=== PATIENT | female | born 1980 | race Caucasian/White ===

== ENCOUNTER 2016-09-07 20:35 | Emergency (ER) | payer OTHER ==
[~2016-09-07] VITALS: Ht 165.1 cm; Wt 120.0 kg
[~2016-09-07 20:35] MED LIST: ALBU6.7H INH; CETI5TAB2 PO; CIPR500T2 PO; GUAI100S6 PO; PRED20 PO; PROM25SU8 PO; Z.0.BCPILL PO; ZITH250T PO
[2016-09-07 20:56] VITALS: BP 146/99; PULSE 113; RESP 14; TEMP 98.3; O2SAT 98
--- NOTE | 2016-09-07 21:39 | PD ---
HPI Chief Complaint: Musculoskeletal Complaint Time Seen by Provider: 21:15 Travel History International Travel<30 days: No Contact w/Intl Traveler<30days: No Traveled to known affect area: No History of Present Illness HPI 35-year-old female presents to the emergency department for right ankle pain. She reports she was running in the yard and felt a pop in the posterior aspect of her ankle causing immediate pain. She describes the pain as aching, constant , severity 4-10,Relieved with rest. Patient is able to ambulate but has pain with dorsiflexion. She denies any numbness or tingling in the extremity. She reports normal motor and sensation of the extremity. [facility] Past Medical History Medical History: Denies Significant Hx Diminished Hearing: No Tetanus Vaccination: Unknown Influenza Vaccination: Yes ?: Not Social History Alcohol Use: Yes (OCCASIONAL) Tobacco Use: No Substance Use: No Allergies-Medications (Allergen,Severity, Reaction): Coded Allergies: No Known Allergies (Verified , 12/06/12) Reported Meds & Prescriptions Reported Meds & Active Scripts Active Deltasone (Prednisone) 20 Mg Tab 20 Mg PO BID Proventil Hfa (Albuterol Sulfate) 6.7 Gm Aero 2 Puff INH Q4 PRN * SHAKE WELL BEFORE USE * Zithromax Z-Umberto (Azithromycin) 250 Mg Tab 250 Mg PO DAILY 6 Days Robitussin Ac (Guaifenesin/Codeine Phosphate) Syrp 5-10 Ml PO Q6HPRN Phenergan (Promethazine HCl) 25 Mg Tab 25 Mg PO Q6HPRN FOR NAUSEA/VOMITING Cipro (Ciprofloxacin) 500 Mg Tab 500 Mg PO BID Reported Zyrtec (Cetirizine HCl) 5 Mg Tab 5 Mg PO DAILY Control Pills (Miscellaneous Medication) Tab 1 Tab PO DAILY Review of Systems Except as stated in HPI: all other systems reviewed are Neg Physical Exam Narrative GENERAL: Well-nourished, well-developed patient. SKIN: Focused skin assessment warm/dry. No ecchymosis. HEAD: Normocephalic. EYES: No scleral icterus. No injection or drainage. NECK: Supple, trachea midline. No JVD or lymphadenopathy. CARDIOVASCULAR: Regular rate and rhythm without murmurs, gallops, or rubs. RESPIRATORY: Breath sounds equal bilaterally. No accessory muscle use. GASTROINTESTINAL: Abdomen soft, non-tender, nondistended. MUSCULOSKELETAL: No cyanosis. No deformity. Mild swelling to the right ankle. Tenderness to the posterior aspect over the Achilles tendon. Positive Rosario's test. BACK: Nontender without obvious deformity. No CVA tenderness. Data Data Last Documented VS Vital Signs Date Time Temp Pulse Resp B/P Pulse Ox O2 Delivery O2 Flow Rate FiO2 09/07/16 20:56 98.3 113 14 146/99 98 Orders Ankle, Complete ([id number]) (09/07/16 ) Splint Or Brace Apply/Monitor (09/07/16 21:55) [facility] Medical Decision Making Medical Screen Exam Complete: Yes Emergency Medical Condition: Yes Differential Diagnosis Achilles tendon rupture, ankle fracture, ankle sprain Narrative Course 35-year-old female presents to the emergency department for posterior ankle pain. She reports that she was running in her yard and felt a pop and sharp pain in the posterior aspect of her ankle. Patient has pain and limited dorsiflexion and plantarflexion. Extremities neurovascularly intact. Tenderness on exam to the posterior ankle over the Achilles tendon. Patient has a positive Rosario's test. X-ray negative for fracture. Compartments of the calf are soft. Achilles tendon rupture/injury suspected. Patient placed in posterior short leg splint in slight plantarflexion. Crutches for nonweightbearing. Patient is going to call for orthopedic follow-up tomorrow. Patient instructed to ice and elevate the extremity. Patient agrees to this plan. 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 Additional Instructions: Call for orthopedic follow-up tomorrow. Keep the area elevated. Return to the emergency department immediately if he developed severe increasing pain, numbness and tingling in her toes, change in color or temperature of the toes. Scripts Ibuprofen 800 Mg [id number] Mg PO Q8H PRN (Pain/Inflammation) #20 TAB Ref 0 Prov:Angélica Kidd 09/07/16 Tramadol 50 Mg Tab50 Mg PO Q6H PRN (PAIN) #15 TAB Ref 0 Prov:Angélica Kidd 09/07/16 Disposition: 01 DISCHARGE HOME Condition: Stable Angélica KiddP September 07, 2016 21:39
--- NOTE | 2016-09-07 21:54 | RADHPO ---
EXAM DATE/TIME: 09/07/2016 21:31 [facility] COMPARISON: No previous studies available for comparison. INDICATIONS : Complains of right ankle pain. MEDICAL HISTORY : None. SURGICAL HISTORY : None. ENCOUNTER: Initial ACUITY: 1 day PAIN SCORE: 6/10 LOCATION: Right ankle FINDINGS: There is no acute fracture or dislocation of the right ankle. The ankle mortise is intact. There is a prominent Achilles calcaneal spur. CONCLUSION: 1. No acute fracture or dislocation. 2. Prominent Achilles calcaneal spur. Serafin Perdue MD on September 07, 2016 at 21:38 Board Certified Radiologist. This report was verified electronically.
[2016-09-07] MEDS ORDERED: IBUP800T23 PO (22:19)
[2016-09-07] MEDS ORDERED: TRAM50TA PO (22:19)
== END 2016-09-07 22:43 | disposition home or self-care (01) ==
LOC: PHEFT 20:35
DX: S86.001A Unspecified injury of right Achilles tendon, initial encounter (principal); X50.9XXA Other and unspecified overexertion or strenuous movements or postures, initial encounter; Z79.899 Other long term (current) drug therapy
CPT/HCPCS: 29515; 73610; E0113

== ENCOUNTER 2016-09-09 15:00 | Observation (INO) | payer OTHER ==
[~2016-09-09] VITALS: Ht 165.1 cm; Wt 85.0 kg
[~2016-09-09 15:00] MED LIST changes: +IBUP800T23 PO; +TRAM50TA PO
[2016-09-09 15:01] VITALS: BP 152/102; PULSE 105; TEMP 98.1; O2SAT 97
--- NOTE | 2016-09-09 15:12 | PD ---
Physical Exam Time Seen by Provider: 15:08 Narrative 35yo F sent by boring mill set up operator vertical for MRI R ankle and admission for surgery tomorrow secondary to possible ruptured Achilles tendon. Patient does not know name of boring mill set up operator vertical. Says the MD was going o call ahead. Patient seen in triage. VS reviewed. Awaiting bed placement. Data Data Last Documented VS Vital Signs Date Time Temp Pulse Resp B/P Pulse Ox O2 Delivery O2 Flow Rate FiO2 09/09/16 15:01 98.1 105 152/102 97 MDM Supervised Visit with CHAGO: Margie Rodas September 09, 2016 15:11
[2016-09-09] MEDS ORDERED: ALLE60TA PO ×2 (15:29)
[2016-09-09] MEDS ORDERED: SYMB160A INH ×2 (15:29)
--- NOTE | 2016-09-09 15:45 | PD ---
HPI Chief Complaint: Injury Time Seen by Provider: 15:20 Travel History International Travel<30 days: No Contact w/Intl Traveler<30days: No Traveled to known affect area: No History of Present Illness HPI This is a patient who was sent here by her machine or machinery mechanic for admission for operative repair of Achilles tendon rupture. The patient sustained an Achilles tendon rupture 2 days ago when she was running. She was placed in a posterior short leg splint, followed up yesterday with machine or machinery mechanic Dr. Saldana. She was sent here today by Dr. Saldana to be admitted to medicine, consultation to herself, likely operative repair tomorrow. I discussed with Dr. Saldana, she would like an MRI of the right ankle to be performed today to help with preoperative planning. The patient has been nonweightbearing, right leg has been in a posterior short leg splint and she has no complaints at this time. PFSH Past Medical History Asthma: Yes Diminished Hearing: No Respiratory: Yes (ASTHMA & ALLERGIES) ?: Not LMP: 08/19/16 Social History Alcohol Use: Yes (OCCASIONAL) Tobacco Use: No Substance Use: No Allergies-Medications (Allergen,Severity, Reaction): Coded Allergies: No Known Allergies (Verified , 09/09/16) Reported Meds & Prescriptions Reported Meds & Active Scripts Active Reported Payton Allergy (Fexofenadine HCl) 60 Mg Tab 60 Mg PO BID Review of Systems Except as stated in HPI: all other systems reviewed are Neg Physical Exam Narrative GENERAL: Well-nourished female in no acute distress SKIN: Warm and dry. HEAD: Atraumatic. Normocephalic. EYES: Pupils equal and round. No scleral icterus. No injection or drainage. ENT: No nasal bleeding or discharge. Mucous membranes pink and moist. NECK: Trachea midline. No JVD. CARDIOVASCULAR: Regular rate and rhythm. No murmur appreciated. RESPIRATORY: No accessory muscle use. Clear to auscultation. Breath sounds equal bilaterally. GASTROINTESTINAL: Abdomen soft, non-tender, nondistended. MUSCULOSKELETAL: No obvious deformities. Right leg in a posterior short-leg splint. She is able to wiggle her toes. NEUROLOGICAL: Awake and alert. No obvious cranial nerve deficits. Motor grossly within normal limits. Normal speech. Data Data Last Documented VS Vital Signs Date Time Temp Pulse Resp B/P Pulse Ox O2 Delivery O2 Flow Rate FiO2 5/31/17 15:24 96 Room Air 09/09/16 15:01 98.1 105 152/102 Orders Complete Blood Count With Diff (09/09/16 15:41) Basic Metabolic Panel (Bmp) (09/09/16 15:41) Act Partial Throm Time (Ptt) (09/09/16 15:41) Prothrombin Time / Inr (Pt) (09/09/16 15:41) Mri Joint Ankle W/O Contrast (09/09/16 ) Iv Access Insert/Monitor (09/09/16 15:41) Consult Podiatry (09/09/16 ) Admit Order (Ed Use Only) (09/09/16 16:09) Admit To Inpatient (09/09/16 ) Inpatient Certification (09/09/16 ) Diet Regular Basic (09/09/16 Dinner) Activity Bed Rest (09/09/16 16:09) Vital Signs (Adult) [id number].[id number] (09/09/16 16:09) MDM Medical Decision Making Medical Screen Exam Complete: Yes Emergency Medical Condition: Yes Medical Record Reviewed: Yes Differential Diagnosis Achilles tendon rupture, ankle fracture, compartment syndrome Narrative Course An MRI of the right ankle has been ordered. The patient will be admitted to medicine with consultation to Dr. Saldana. Diagnosis Primary Impression: Achilles tendon rupture Qualified Code: S86.011D - Achilles tendon rupture, right, subsequent encounter Admitting Information Admitting Physician Requests: Observation Hakeem Kumar September 09, 2016 15:45
[2016-09-09 16:30] LABS: AUTOMATED NEUTROPHIL # 3.9 TH/MM3 (1.8-7.7); BASOPHIL # 0.1 TH/MM3 (0-0.2); BASOPHIL % 0.9 % (0.0-2.0); EOSINOPHIL # 0.4 TH/MM3 (0-0.4); EOSINOPHIL % 5.5 % (0.0-4.0); HEMATOCRIT 41.4 % (35.0-46.0); HEMO FLAGS DIFF FINAL; LYMPHOCYTE # 1.8 TH/MM3 (1.0-4.8); MEAN CELL VOLUME 82.6 FL (80.0-100.0); MEAN CORPUSCULAR HEMOGLOBIN 26.7 PG (27.0-34.0); MEAN CORPUSCULAR HGB CONC 32.4 % (32.0-36.0); NEUT % 59.6 % (16.0-70.0); PLATELET COUNT 263 TH/MM3 (150-450); RED BLOOD COUNT 5.01 MIL/MM3 (4.00-5.30); RED CELL DISTRIBUTION WIDTH 13.8 % (11.6-17.2); WHITE BLOOD COUNT 6.5 TH/MM3 (4.0-11.0)
[2016-09-09 16:40] LABS: PROTHROMBIN TIME - PATIENT 10.7 SEC (9.8-11.6)
--- NOTE | 2016-09-09 17:02 | HHI.HP ---
[facility] No Primary Care Physician Admission Diagnosis R achilles tendon rupture Diagnoses: Chief Complaint: Right foot pain Travel History International Travel<30 Days: No Contact w/Intl Traveler <30 Da: No Traveled to Known Affected Are: No History of Present Illness Patient is a 35-year-old female with history of hyperreactive airway disease who about 2 days prior to admission was laying around her home chasing each other when patient felt something popped on his foot and next day noted some swelling of the foot and unable to fully evaluate chronic with increasing pain. Came to the urgent care clinic where on evaluation was suspected to have an Achilles tendon rupture. Posterior leg splint was placed. Patient was referred to assisted living nursing director and was sent over here for further evaluation and management.and possible operative repair. Review of Systems Constitutional: DENIES: Diaphoretic episodes, Fatigue, Fever, Weight gain, Weight loss, Chills, Dizziness, Change in appetite, Night Sweats Endocrine: DENIES: Abnorml menstrual pattern, Heat/cold intolerance, Polydipsia , Polyuria, Polyphagia Eyes: DENIES: Blurred vision, Diplopia, Eye inflammation, Eye pain, Vision loss , Photosensitivity, Double Vision Ears, nose, mouth, throat: DENIES: Tinnitus, Hearing loss, Vertigo, Nasal discharge, Oral lesions, Throat pain, Hoarseness, Ear Pain, Running Nose, Epistaxis, Sinus Pain, Toothache, Odynophagia Respiratory: DENIES: Apneas, Cough, Snoring, Wheezing, Hemoptysis, Sputum production, Shortness of breath Cardiovascular: DENIES: Chest pain, Palpitations, Syncope, Dyspnea on Exertion , PND, Lower Extremity Edema, Orthopnea, Claudication Gastrointestinal: DENIES: Abdominal pain, Black stools, Bloody stools, Constipation, Diarrhea, Nausea, Vomiting, Difficulty Swallowing, Anorexia Genitourinary: DENIES: Abnormal vaginal bleeding, Dysmenorrhea, Dyspareunia, Sexual dysfunction, Urinary frequency, Urinary incontinence, Urgency, Hematuria , Dysuria, Nocturia, Vaginal discharge Musculoskeletal: DENIES: Joint pain, Muscle aches, Stiffness, Joint Swelling, Back pain, Neck pain Integumentary: DENIES: Abnormal pigmentation, Pruritus, Rash, Nail changes, Breast masses, Breast skin changes, Nipple discharge Hematologic/lymphatic: DENIES: Bruising, Lymphadenopathy Immunologic/allergic: DENIES: Eczema, Urticaria Neurologic: DENIES: Abnormal gait, Headache, Localized weakness, Paresthesias, Seizures, Speech Problems, Tremor, Poor Balance Psychiatric: DENIES: Anxiety, Confusion, Mood changes, Depression, Hallucinations, Agitation, Suicidal Ideation, Homicidal Ideation, Delusions Past Family Social History Past Medical History Hyperreactive airway disease Allergic rhinitis Past Surgical History section x 1- 2 para 2 Reported Medications None Allergies: Coded Allergies: No Known Allergies (Verified , 09/09/16) Family History Positive family history of hypertension, diabetes, COPD Social History Nonsmoker very rare Physical Exam Vital Signs Vital Signs Date Time Temp Pulse Resp B/P Pulse Ox O2 Delivery O2 Flow Rate FiO2 09/09/16 15:24 96 Room Air 09/09/16 15:01 98.1 105 152/102 97 Physical Exam GENERAL:in no apparent distress. SKIN: No rashes, ecchymoses or lesions. Cool and dry. HEAD: Atraumatic. Normocephalic.\ EYES: Pupils equal round and reactive. Extraocular motions intact. No scleral icterus. No injection or drainage. ENT: Nose without bleeding, Throat without erythema Airway patent. NECK: Trachea midline. No JVD or lymphadenopathy. Supple, nontender, no meningeal signs. CARDIOVASCULAR: Regular rate and rhythm without murmurs, gallops, or rubs. RESPIRATORY: Clear to auscultation. Breath sounds equal bilaterally. No wheezes , rales, or rhonchi. GASTROINTESTINAL: Abdomen soft, non-tender, nondistended. No hepato-splenomegaly , or palpable masses. No guarding. MUSCULOSKELETAL: Extremities without clubbing, cyanosis, or edema. No joint tenderness, effusion, or edema noted. No calf tenderness. Negative Homans sign bilaterally.. Foot with a plastic dressing in place able to wiggle toes freely NEUROLOGICAL: Awake and alert. Cranial nerves II through XII intact. Motor and sensory grossly within normal limits. Five out of 5 muscle strength in all muscle groups. Normal speech. Gait testing deferred Laboratory Laboratory Tests Test 09/09/16 16:00 White Blood Count 6.5 Red Blood Count 5.01 Hemoglobin 13.4 Hematocrit 41.4 Mean Corpuscular Volume 82.6 Mean Corpuscular Hemoglobin 26.7 Mean Corpuscular Hemoglobin 32.4 Concent Red Cell Distribution Width 13.8 Platelet Count 263 Mean Platelet Volume 8.1 Neutrophils (%) (Auto) 59.6 Lymphocytes (%) (Auto) 27.0 Monocytes (%) (Auto) 7.0 Eosinophils (%) (Auto) 5.5 Basophils (%) (Auto) 0.9 Neutrophils # (Auto) 3.9 Lymphocytes # (Auto) 1.8 Monocytes # (Auto) 0.5 Eosinophils # (Auto) 0.4 Basophils # (Auto) 0.1 CBC Comment DIFF FINAL Differential Comment Prothrombin Time 10.7 Prothromb Time International 1.0 Ratio Activated Partial 28.0 Thromboplast Time Result Diagram: 09/09/16 1600 Assessment and Plan Assessment and Plan 35-year-old female Status post fall 2 days ago presenting with right foot pain possible Achilles tendon rupture. MRI ordered. Podiatry consulted. Plan for surgery in a.m. When necessary pain meds. History of hyperreactive airway disease in remission.. Continue on Symbicort 1 puff daily. Albuterol MDI when necessary for shortness of breath. Discussed Condition With Patient Physician Certification 2 Midnight Certification Type: Admission for Inpatient Services Order for Inpatient Services The services are ordered in accordance with Medicare regulations or non- Medicare payer requirements, as applicable. In the case of services not specified as inpatient-only, they are appropriately provided as inpatient services in accordance with the 2-midnight benchmark. Estimated LOS (days): 3 days is the estimated time the patient will need to remain in the hospital, assuming treatment plan goals are met and no additional complications. Post-Hospital Plan: Not yet determined Angus Erazo MD September 09, 2016 17:02
[2016-09-09 17:09] LABS: BICARBONATE 28.3 MEQ/L (21.0-32.0); POTASSIUM 3.7 MEQ/L (3.5-5.1)
--- NOTE | 2016-09-09 18:20 | PD.CONS ---
History of Present Illness Service Podiatry Consult Requested By ED Reason for Consult R achilles tendon rupture Primary Care Physician No Primary Care Physician Diagnoses: History of Present Illness patient was chasing kids who were playing with water guns and felt a pop in her R achilles tendon and was subsequently unable to walk on . She was seen at [facility], splinted NWB and followed up in clinic yesterday. She was sent in today for surgical repair of the ruptured tendon. Past Family Social History Allergies: Coded Allergies: No Known Allergies (Verified , 09/09/16) Physical Exam Vital Signs Vital Signs Date Time Temp Pulse Resp B/P Pulse Ox O2 Delivery O2 Flow Rate FiO2 09/09/16 17:56 100 09/09/16 15:24 96 Room Air 09/09/16 15:01 98.1 105 152/102 97 Physical Exam GENERAL: This is a well-nourished, well-developed patient, in no apparent distress. NVI RLE. Pain to palpation to midsubstance achilles tendon R and insertion. Positive mcdaniels test. Mild edema. Laboratory Laboratory Tests Test 09/09/16 16:00 White Blood Count 6.5 Red Blood Count 5.01 Hemoglobin 13.4 Hematocrit 41.4 Mean Corpuscular Volume 82.6 Mean Corpuscular Hemoglobin 26.7 Mean Corpuscular Hemoglobin 32.4 Concent Red Cell Distribution Width 13.8 Platelet Count 263 Mean Platelet Volume 8.1 Neutrophils (%) (Auto) 59.6 Lymphocytes (%) (Auto) 27.0 Monocytes (%) (Auto) 7.0 Eosinophils (%) (Auto) 5.5 Basophils (%) (Auto) 0.9 Neutrophils # (Auto) 3.9 Lymphocytes # (Auto) 1.8 Monocytes # (Auto) 0.5 Eosinophils # (Auto) 0.4 Basophils # (Auto) 0.1 CBC Comment DIFF FINAL Differential Comment Prothrombin Time 10.7 Prothromb Time International 1.0 Ratio Activated Partial 28.0 Thromboplast Time Sodium Level 138 Potassium Level 3.7 Chloride Level 104 Carbon Dioxide Level 28.3 Anion Gap 6 Blood Urea Nitrogen 12 Creatinine 0.87 Estimat Glomerular Filtration 74 Rate Random Glucose 88 Calcium Level 9.2 Result Diagram: 09/09/16 1600 09/09/16 1600 Imaging MRI report pending Preliminary read confirms diagnosis Assessment and Plan Assessment and Plan Achilles tendon rupture, R Plan to OR tomorrow PM for repair R achilles tendon NPO after breakfast. NWB RLE in splint. Will need DVT prophylaxis upon d/c Elisabet Saldana DPM September 09, 2016 18:20
--- NOTE | 2016-09-09 18:56 | RADRPT ---
EXAM DATE/TIME: 09/09/2016 17:08 [facility] COMPARISON: No previous studies available for comparison. INDICATIONS : Achilles tendon tear. MEDICAL HISTORY : Asthma. SURGICAL HISTORY : section. ENCOUNTER: Initial ACUITY: 1 day PAIN SCORE: 7/10 LOCATION: Right Ankle. TECHNIQUE: Multiplanar, multisequence MRI examination was performed without contrast. FINDINGS: Rupture of the Achilles tendon 3 cm from the insertion. Marked heterogeneity and thinning of the dist al tendon fragment. Moderate thickening and heterogeneity of the proximal tendon fragment. 1 cm retra ction. All of the other visualized tendons are intact. Medial and lateral ligaments complexes are int act. Mild reactive bony change of the posterior process of the calcaneus. Bone marrow signal otherwis e within normal limits. Sinus Tarsi within normal limits. Plantar neurosis intact. CONCLUSION: Rupture of the Achilles tendon 3 cm proximal to the insertion with 1 cm retraction. Leandro Trejo MD on September 09, 2016 at 18:51 Board Certified Radiologist. This report was verified electronically.
[2016-09-09 20:00] VITALS: BP 121/76; PULSE 102; RESP 18; TEMP 97.4; O2SAT 98
[2016-09-09] MEDS: oxyCODONE/ACETAMINOPHEN 5 MG/325 MG TAB PO PRN (20:46)
[2016-09-10 00:10] VITALS: BP 118/63; PULSE 100; RESP 18; TEMP 97.8; O2SAT 98
[2016-09-10 08:00] VITALS: BP 146/69; PULSE 103; RESP 18; TEMP 97.3; O2SAT 98
--- NOTE | 2016-09-10 10:12 | HHI.PR ---
Subjective Remarks no complains of pain looking forward to surgery thi pm Objective Vitals Vital Signs Date Time Temp Pulse Resp B/P Pulse Ox O2 Delivery O2 Flow Rate FiO2 09/10/16 08:00 97.3 103 18 146/69 98 09/10/16 00:10 97.8 100 18 118/63 98 09/09/16 20:00 97.4 102 18 121/76 98 09/09/16 17:56 100 09/09/16 15:24 96 Room Air 09/09/16 15:01 98.1 105 152/102 97 I/O 09/09/16 09/09/16 09/09/16 09/10/16 09/10/16 09/10/16 07:00 15:00 23:00 07:00 15:00 23:00 Intake Total 480 ml 280 ml Balance 480 ml 280 ml Intake Oral 480 ml 280 ml # Voids 2 2 Result Diagram: 09/09/16 1600 09/09/16 1600 Imaging Last Impressions Ankle MRI 09/09/16 0000 Signed Impressions: Service Date/Time: Friday, September 09, 2016 17:08 - CONCLUSION: Rupture of the Achilles tendon 3 cm proximal to the insertion with 1 cm retraction. Leandro Trejo MD Objective Remarks awake and alert, no distress lungs clear, no wheezes, no rales regular rhythm abdomen soft, nontender extremities- foot elastic dressing in place, no calf tenderness A/P Assessment and Plan 35-year-old female Status post fall 2 days ago - right Achilles tendon rupture. Podiatry ff. For surgery today History of hyperreactive airway disease in remission.. Continue on Symbicort 1 puff daily. Albuterol MDI when necessary for shortness of breath. DVT prophylaxis post op per Podiatry Angus Erazo MD Sep 10, 2016 10:12
[2016-09-10] MEDS ORDERED: ONDANSETRON HCL 4 MG/2 ML VIAL IV PUSH ONE (11:08)
[2016-09-10] MEDS ORDERED: PROPOFOL 200 MG/20 ML AMP IV ONE (11:08)
[2016-09-10 12:00] VITALS: BP 135/74; PULSE 89; RESP 18; TEMP 97.3; O2SAT 96
[2016-09-10 16:00] VITALS: BP 132/73; PULSE 100; RESP 19; TEMP 97.4; O2SAT 97
[2016-09-10] MEDS ORDERED: ceFAZolin 2 GM PREMIX 50 ML ONE (17:08)
[2016-09-10] MEDS ORDERED: ceFAZolin INJ 1,000 MG VIAL ONE (17:08)
[2016-09-10] MEDS ORDERED: FAMOTIDINE 20 MG/2 ML VIAL ONE (17:22)
[2016-09-10] MEDS ORDERED: MIDAZOLAM HCL 2 MG/2 ML VIAL ONE (17:22)
[2016-09-10] MEDS ORDERED: fentaNYL CITRATE 250 MCG/5 ML AMP ONE ×2 (17:22→19:04)
[2016-09-10] MEDS ORDERED: DEXAMETHASONE SOD PHOS 4 MG/ML VIAL ONE (17:22)
[2016-09-10 20:18] VITALS: BP 125/55; PULSE 69; RESP 17; TEMP 97.5; O2SAT 97
--- NOTE | 2016-09-10 20:40 | HHI.PR ---
Immediate Post Op Note Procedure Date: Sep 10, 2016 Pre Op Diagnosis: Right achilles tendon rupture Post Op Diagnosis: Same Surgeon: Elisabet Saldana DPM [employer](s): Staff Procedure: 1. gastrocnemius recession R 2. achilles tendon repair with graft 3. flexor hallucis longus tendon transfer Findings: 2g ancef preop. Achilles tendon ruptured 1cm proximal to insertion with frayed ends and proximal aspect retracted 1cm proximally. Gastrocnemius recession performed to achieve adequate length for repair. Flexor hallucis longus tendon identified and released at posterior ankle and transferred to dorsal posterior calcaneus with 4.75 swivelock. Graft jacket utilized to augment repair of achilles with arthrex speedbridge system. Irrigation and closure of skin with 2-0 vicryl and 2 -0 nylon, followed by posterior splint in plantarflexion. NWB RLE. PT to gait train. DVT prophylaxis to start tomorrow. Additional Information: prone position Complications: none Specimen(s) removed: n/a Estimated blood loss: minimal Anesthesia: General Drains: None IVF Tourniquet time (min at mmHg) 126 min @ 250 mmHg Patient to: PACU Patient Condition: Good Date/Time of Procedure: SEE SURGICAL CARE RECORD Elisabet Saldana DPM Sep 10, 2016 20:40
[2016-09-10] MEDS ORDERED: *morphine SULFATE 8 MG/ML PERIprocedure ONLY ONE ×2 (20:53→21:20)
[2016-09-10] MEDS ORDERED: *MEPERIDINE 25 MG INJ VIAL PERIprocedural Use ONLY ONE (20:54)
--- NOTE | 2016-09-10 21:02 | RADRPT ---
EXAM DATE/TIME: 09/10/2016 20:23 [facility] COMPARISON: No previous studies available for comparison. INDICATIONS : Right achilles tendon repair. MEDICAL HISTORY : Asthma SURGICAL HISTORY : section. ENCOUNTER: Initial ACUITY: 1 day PAIN SCORE: Non-responsive. LOCATION: Right ankle FINDINGS: A single view of the right ankle was performed. There is a cylindrical lucency involving the calcaneu s consistent with surgical repair.. CONCLUSION: Limited image as detailed above. Moises Pan Jr., MD on September 10, 2016 at 20:59 Board Certified Radiologist. This report was verified electronically.
[2016-09-10] MEDS ORDERED: DO NOT ADM ANY ANTICOAGULANT DRUGS PRN (21:45)
[2016-09-10] MEDS: oxyCODONE/ACETAMINOPHEN 5 MG/325 MG TAB PO PRN (21:48)
[2016-09-10 22:00] VITALS: BP 167/91; PULSE 109; RESP 18; TEMP 98.9; O2SAT 96
[2016-09-10] MEDS: HYDROmorphone HCL PF 1 MG/ML VIAL IV PUSH PRN (22:20)
[2016-09-11 00:03] VITALS: BP 134/81; PULSE 102; RESP 18; TEMP 97; O2SAT 95
[2016-09-11] MEDS: oxyCODONE/ACETAMINOPHEN 5 MG/325 MG TAB PO PRN ×4 (01:27→20:47)
[2016-09-11] MEDS: HYDROmorphone HCL PF 1 MG/ML VIAL IV PUSH PRN (02:16)
[2016-09-11 04:05] VITALS: BP 114/60; PULSE 104; RESP 18; TEMP 97.4; O2SAT 96
[2016-09-11 08:00] VITALS: BP 114/86; PULSE 91; RESP 18; TEMP 97.1; O2SAT 96
--- NOTE | 2016-09-11 08:09 | HHI.PR ---
Subjective Remarks no complains of pain right now feels frustrated- wanting to be discharge Objective Vitals Vital Signs Date Time Temp Pulse Resp B/P Pulse Ox O2 Delivery O2 Flow Rate FiO2 09/11/16 04:05 97.4 104 18 114/60 96 09/11/16 00:03 97.0 102 18 134/81 95 09/10/16 22:00 98.9 109 18 167/91 96 09/10/16 21:15 100 16 143/71 98 Nasal Cannula 2 09/10/16 21:00 97 16 149/79 97 Nasal Cannula 2 09/10/16 20:45 97 16 151/87 99 Nasal Cannula 2 09/10/16 20:40 97.2 99 16 159/94 100 Nasal Cannula 2 09/10/16 16:00 97.4 100 19 132/73 97 09/10/16 12:00 97.3 89 18 135/74 96 I/O 09/10/16 09/10/16 09/10/16 09/11/16 09/11/16 09/11/16 07:00 15:00 23:00 07:00 15:00 23:00 Intake Total 280 ml 0 ml 1300 ml 240 ml Output Total 100 ml Balance 280 ml 0 ml 1200 ml 240 ml Intake Oral 280 ml 0 ml 0 ml 240 ml IV Total 100 ml Other 1200 ml Output Urine Total 0 ml Estimated Blood Loss 100 ml Other 0 ml # Voids 2 2 2 # Bowel Movements 1 Result Diagram: 09/09/16 1600 09/09/16 1600 Imaging Last Impressions Ankle X-Ray 09/10/16 0000 Signed Impressions: Service Date/Time: September 20:23 - CONCLUSION: Limited image as detailed above. Moises Pan Jr., MD Ankle MRI 09/09/16 0000 Signed Impressions: Service Date/Time: Friday, September 09, 2016 17:08 - CONCLUSION: Rupture of the Achilles tendon 3 cm proximal to the insertion with 1 cm retraction. Leandro Trejo MD Objective Remarks awake and alert, no distress lungs clear, no wheezes, no rales regular rhythm abdomen soft, nontender right foot - foot elastic dressing in place Procedures 09/10- achilles tendon repair with graft, gastrocnemius recession A/P Assessment and Plan 35-year-old female Status post fall R Achilles tendon rupture S/P Achilles tendon repair 09/10 Podiatry ff. will defer to Podiatry service to initiate and order for PT with specific orders for weightbearing status History of hyperreactive airway disease in remission.. Continue on Symbicort 1 puff daily. Albuterol MDI when necessary for shortness of breath. DVT prophylaxis- start on Lovenox if cleared with Podiatry- Discharge Planning will get CM involved for early DC plans Angus Erazo MD Sep 11, 2016 08:09
[2016-09-11] MEDS ORDERED: HYDROmorphone HCL PF 1 MG/ML VIAL IV PUSH PRN (09:00)
[2016-09-11] MEDS: LORATADINE 10 MG TAB PO SCH (09:47)
[2016-09-11] MEDS: ENOXAPARIN SODIUM 40 MG/0.4 ML SYRINGE SQ SCH (09:48)
[2016-09-11 12:00] VITALS: BP 119/74; PULSE 105; RESP 18; TEMP 96.6; O2SAT 99
[2016-09-11 16:00] VITALS: BP 116/59; PULSE 109; RESP 18; TEMP 98.6; O2SAT 95
[2016-09-11 20:48] VITALS: BP 126/65; PULSE 100; RESP 20; TEMP 99.1; O2SAT 97
--- NOTE | 2016-09-11 22:34 | PD.POD ---
Subjective Podiatric Problems POD # 1 s/p achilles tendon repair R, FHL tendon transfer R, gastrocnemius recession R, DOS 09/10/16 Robbieirogaetano Past Med/Surg/Social History Social History Smoking Status: Never Smoker Objective Vital Signs Vital Signs Date Time Temp Pulse Resp B/P Pulse Ox O2 Delivery O2 Flow Rate FiO2 09/11/16 20:48 99.1 100 20 126/65 97 09/11/16 16:00 98.6 109 18 116/59 95 09/11/16 12:00 96.6 105 18 119/74 99 09/11/16 08:00 97.1 91 18 114/86 96 09/11/16 04:05 97.4 104 18 114/60 96 09/11/16 00:03 97.0 102 18 134/81 95 Coded Allergies: No Known Allergies (Verified , 09/09/16) Physical Exam Remarks R foot splint intact. Able to flex/extend digits. NVI RLE. Bandage clean without strikethrough. Denies calf pain, shortness of breath Assessment & Plan A/P POD # 1 s/p achilles tendon repair R, FHL tendon transfer R, gastrocnemius recession R, DOS 09/10/16 Shana Continue NWB RLE Needs pain control/lovenox upon DC Ok to d/c tomorrow morning if tolerating PO pain medication Has appt in clinic next for follow up Keep clean, dry, intact Eliasbet Saldana DPM Sep 11, 2016 22:34
[2016-09-12] VITALS: BP 101/51; PULSE 100; RESP 20; TEMP 99.4; O2SAT 98
[2016-09-12 08:00] VITALS: BP 142/64; PULSE 115; RESP 18; TEMP 100.1; O2SAT 95
--- NOTE | 2016-09-12 08:20 | HHI.PR ---
Subjective Remarks complains of pain- pain meds helping a little no consitpation looking forward to going home Objective Vitals Vital Signs Date Time Temp Pulse Resp B/P Pulse Ox O2 Delivery O2 Flow Rate FiO2 09/12/16 00:00 99.4 100 20 101/51 98 09/11/16 20:48 99.1 100 20 126/65 97 09/11/16 16:00 98.6 109 18 116/59 95 09/11/16 12:00 96.6 105 18 119/74 99 I/O 09/11/16 09/11/16 09/11/16 09/12/16 09/12/16 09/12/16 07:00 15:00 23:00 07:00 15:00 23:00 Intake Total 240 ml 548 ml 580 ml 360 ml Output Total 400 ml 500 ml Balance 240 ml 148 ml 80 ml 360 ml Intake Oral 240 ml 548 ml 580 ml 360 ml Output Urine Total 400 ml 500 ml # Voids 2 2 2 # Bowel Movements 0 Result Diagram: 09/09/16 1600 09/09/16 1600 Imaging Last Impressions Ankle X-Ray 09/10/16 0000 Signed Impressions: Service Date/Time: September 20:23 - CONCLUSION: Limited image as detailed above. Moises Pan Jr., MD Ankle MRI 09/09/16 0000 Signed Impressions: Service Date/Time: Friday, September 09, 2016 17:08 - CONCLUSION: Rupture of the Achilles tendon 3 cm proximal to the insertion with 1 cm retraction. Leandro Trejo MD Objective Remarks awake and alert, no distress lungs clear, no wheezes, no rales regular rhythm abdomen soft, nontender right LE- posterior splint in place, toes moving freely Procedures 09/10- achilles tendon repair with graft, gastrocnemius recession A/P Assessment and Plan 35-year-old female Status post fall R Achilles tendon rupture S/P Achilles tendon repair 09/10 DC today with OP ff up with Podaitry . NWB right LE. History of hyperreactive airway disease in remission.. Continue on Symbicort 1 puff daily. Albuterol MDI when necessary for shortness of breath. Lovenox for DVT prophylaxis- per patient her mom is going to give her shots Percoet prn for pain Discharge Planning will get CM involved for early DC plans Angus Erazo MD Sep 12, 2016 08:20
[2016-09-12] MEDS ORDERED: OXYC1TAB63 PO (08:25)
[2016-09-12] MEDS ORDERED: ENOX40P SQ (08:25)
[2016-09-12] MEDS ORDERED: WALKER WHEELS/F1 MIS (08:29)
[2016-09-12] MEDS: LORATADINE 10 MG TAB PO SCH (09:54)
[2016-09-12] MEDS: ENOXAPARIN SODIUM 40 MG/0.4 ML SYRINGE SQ SCH (09:54)
--- NOTE | 2016-09-18 08:32 | HHI.DS ---
Discharge Summary Admission Date September 09, 2016 at 16:11 Discharge Date: Sep 12, 2016 Admitting Diagnosis R achilles tendon rupture (1) Achilles tendon rupture ICD Code: S86.019A Diagnosis: Principal Procedures 09/10- achilles tendon repair with graft, gastrocnemius recession Brief History - From Admission Patient is a 35-year-old female with history of hyperreactive airway disease who about 2 days prior to admission was laying around her home chasing each other when patient felt something popped on his foot and next day noted some swelling of the foot and unable to fully evaluate chronic with increasing pain. Came to the urgent care clinic where on evaluation was suspected to have an Achilles tendon rupture. Posterior leg splint was placed. 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 Imaging Last Impressions Ankle X-Ray 09/10/16 0000 Signed Impressions: Service Date/Time: September 20:23 - CONCLUSION: Limited image as detailed above. Moises Pan Jr., MD Ankle MRI 09/09/16 0000 Signed Impressions: Service Date/Time: Friday, September 09, 2016 17:08 - CONCLUSION: Rupture of the Achilles tendon 3 cm proximal to the insertion with 1 cm retraction. Leandro Trejo MD PE at Discharge awake and alert, no distress lungs clear, no wheezes, no rales regular rhythm abdomen soft, nontender right LE- posterior splint in place, toes moving freely Pt update on day of discharge pain controlled. very motivated and will be ff instructions and ff up Hospital Course 35-year-old female Status post fall R Achilles tendon rupture S/P Achilles tendon repair 09/10 DC today with OP ff up with Podaitry . NWB right LE. History of hyperreactive airway disease in remission.. Continue on Symbicort 1 puff daily. Albuterol MDI when necessary for shortness of breath. Lovenox for DVT prophylaxis- per patient her mom is going to give her shots Percoet prn for pain DC to day to with OP ff up with Podiatry Pt Condition on Discharge: Stable Discharge Disposition: Discharge Home Discharge Time: <= 30 minutes Discharge Instructions DIET: Follow Instructions for: As Tolerated, No Restrictions Speech Therapy-Diet Recommends: Regular Activities you can perform: Non Weight Bearing Activities to Avoid: Prolonged Standing, Strenuous Activity Other Activity Instructions: non weightbearing right lower extremity avoid getting dressing/splint wet Follow up Referrals: Podiatry - 09/17/16 with Elisabet Saldana DPM New Medications: Walker with Front Wheels (Walker with Front Wheels) 1 Mis Mis 1 EA .ROUTE DIRECTED footinjury #1 Ref 0 EA Enoxaparin Inj (Lovenox Inj) 40 Mg/0.4 Ml Syr 40 MG SQ Q24H DVTpro Days 7 Ref 0 INJECTION Oxycodone-Acetaminophen (Oxycodone-Acetaminophen) 5-325 mg Tab 1 TAB PO Q4-6H PRN foot PAIN 4-10 #40 Ref 0 TAB Continued Medications: Budesonide-Formoterol Inh (Symbicort Inh) 160-4.5 Mcg/Act Aero 2 PUFF INH Q12HR #1 Ref 0 INHALER Fexofenadine ([facility] Allergy) 60 Mg Tab 60 MG PO BID Allergy Management #60 Ref 0 TAB Angus Erazo MD Sep 18, 2016 08:32
--- NOTE | 2016-09-19 04:46 | MP ---
cc: NIKKY ACEVEDOJOYCEAraceli BEE DATE OF SURGERY: 09/10/2016 DATE OF : 1980 HISTORY OF PRESENT ILLNESS: The patient is a 35 year-old female who presented to my clinic complaining of pain to her right Achilles tendon area just above the heel bone, she was chasing her kids who were playing with water guns and felt a pop and was subsequently unable to walk on . She as seen at [facility], Non-weightbearing and followed up in clinic was seen and sent in to be admitted for surgical repair of this ruptured tendon acutely. I discussed the risks, benefits and potential complications of surgery to the patient in great detail as well as DVT prophylaxis and being non-weightbearing for a period of time. The patient understood and all questions were answered to her satisfaction. She was seen in preop holding by myself, nursing staff and Anesthesia where the correct patient side and site were all confirmed to be correct in the right lower extremity. PROCEDURE: The patient was taken back to the surgical suite, placed in prone position where the right lower extremity was prepped and draped in normal sterile fashion after a thigh tourniquet was applied. Timeouts were performed as per hospital protocol followed by an incision made midline at the Achilles tendon area from the insertion proximally for an approximate length of 10 cm. The rupture was noted and was approximately 1 cm proximal to the insertion both ends were frayed and the proximal aspect was retracted approximately 1 cm. It was deemed necessary to do the gastrocnemius recession in order to achieve a length in order to achieve an adequate repair due to the frayed ends and after debridement and another incision was made at the level of the gastrocnemius aponeurosis, linearly approximately 3 to 4 cm in length. The gastrocnemius aponeurosis was identified and incision was made to release that and approximately 2 cm's of length was able to be achieved in the distal most aspect for adequate repair. Closure of this area after irrigation with 2-0 nylon was achieved followed by further exploration into the posterior aspect of the ankle in order to harvest the flexor hallucis longus tendon due to the significant amount of the Achilles tendon that was required to be debrided. It was noted that the patient had degeneration of the anterior half of the tendon and augmentation was required secondary to the massive amount of the tendon that needed to be removed as well as the patient's size in order to achieve a stronger repair. The flexor hallucis longus tendon was identified and released at the posterior ankle and then transferred to the dorsal superior aspect of the posterior calcaneus with a 4.75 swivel lock tenodesis screw. Following this the Achilles tendon was repaired using the Arthrex speed bridge system in addition to a graft jacket on top of this repair. The repair was found to be very strong and withstood tension intraoperatively. Following this the area was copiously irrigated followed by closure of the skin with 2-0 Vicryl and 2-0 nylon. Followed by a posterior splint and plantar flexion. The patient tolerated procedure and anesthesia well and will be non-weightbearing to the right lower extremity. Her DVT prophylaxis to start tomorrow. Shoe will be non-weightbearing and physical therapy to gait train with crutches versus walker versus a knee scooter, and will have the bandage removed and changed approximately 1 week as an outpatient. SURGEON: Elisabet Acevedo MD. DAILY SALES AUDIT CLERK: Staff. PREOPERATIVE DIAGNOSIS Right Achilles tendon rupture. POSTOPERATIVE DIAGNOSIS Right Achilles tendon rupture. PROCEDURE 1. Gastrocnemius recession right 2. Achilles tendon repair with graft. 3. Flexor hallucis longus tendon transfer right. PROPHYLAXIS: 2 grams Ancef IV preop. ANESTHESIA General endotracheal anesthesia. ESTIMATED BLOOD LOSS: Minimal. TOURNIQUET TIME: Right thigh 250 mmHg times 126 minutes CONDITION: Stable to PACU. DISPOSITION Non-weightbearing right lower extremity and posterior splint follow up in one week for bandage change. Elisabet SHI/dayanara /4:50 PM /4:28 AM
== END 2016-09-12 10:41 | disposition home or self-care (01) ==
LOC: NEPD 15:00 → NEDA 16:11 → INTOOBSV 16:11 → OBSVTOIN 16:11 → N07A 18:03
PROVIDERS: ADMIT Internal Medicine; ATTEND Internal Medicine
DX: S86.011D Strain of right Achilles tendon, subsequent encounter (principal); R26.2 Difficulty in walking, not elsewhere classified; M79.671 Pain in right foot; J45.909 Unspecified asthma, uncomplicated
CPT/HCPCS: 01472; 15275; 27652; 27687; 73600; 73721; 76000; 80048; 85025; 85610; 85730; 97162; 99285; C1713; G0378; G8987; G8988; J0690; J1100; J1170; J1650; J2175; J2250; J2270; J2405; J3010; Q4107